=== PATIENT | male | born 2000 ===

== ENCOUNTER 2023-01-07 17:15 | Outpatient (CLI) | payer MEDICAID, SELFPAY | END 2023-01-07 17:16 | disposition home or self-care (01) | PROVIDERS: PCP Emergency Medicine; Visit Provider Emergency Medicine | DX: Z00.00 Encounter for general adult medical examination without abnormal findings (principal); R20.2 Paresthesia of skin; M25.551 Pain in right hip; F32.9 Major depressive disorder, single episode, unspecified; Z11.3 Encounter for screening for infections with a predominantly sexual mode of transmission; Z13.6 Encounter for screening for cardiovascular disorders | CPT/HCPCS: 80053; 80061; 82607; 86140; 86592; 86703; 86706; 86708; 86803; 87491; 87591 ==

== ENCOUNTER 2023-01-21 14:00 | Outpatient (CLI) | payer MEDICAID, SELFPAY | END 2023-01-21 14:01 | disposition home or self-care (01) | PROVIDERS: PCP Emergency Medicine; Visit Provider Emergency Medicine | DX: E53.8 Deficiency of other specified B group vitamins (principal); F32.9 Major depressive disorder, single episode, unspecified; Z13.6 Encounter for screening for cardiovascular disorders | CPT/HCPCS: 82607; 82746; 83090; 84443 ==

== ENCOUNTER 2023-04-22 16:02 | Outpatient (CLI) | payer MEDICAID, SELFPAY | END 2023-04-22 16:03 | disposition home or self-care (01) | LOC: NFLDREF 04-27 04:36 | PROVIDERS: PCP Emergency Medicine; Referring Provider Emergency Medicine; Visit Provider Emergency Medicine | DX: E53.8 Deficiency of other specified B group vitamins (principal); Z13.228 Encounter for screening for other metabolic disorders | CPT/HCPCS: 80048; 80076; 82607; 82746; 83090 ==

== ENCOUNTER 2023-05-15 16:14 | Outpatient (CLI) | payer MEDICAID, SELFPAY | END 2023-05-15 16:15 | disposition home or self-care (01) | PROVIDERS: PCP Emergency Medicine; Visit Provider Emergency Medicine | DX: E53.8 Deficiency of other specified B group vitamins (principal); R62.7 Adult failure to thrive; Z13.21 Encounter for screening for nutritional disorder | CPT/HCPCS: 82306; 86140; 86258; 86364 ==

== ENCOUNTER 2023-06-12 16:15 | Outpatient (RCR) | payer MEDICAID, SELFPAY ==
--- NOTE | 2023-03-18 15:14 | PT.OPE ---
[facility] Start: 03/18/23 11:44 Freq: Status: Active Protocol: Document 03/18/23 15:13 CJT (Rec: 03/18/23 15:14 CJT [id number]) E-signed By Orlando Green PT Physical Therapy Outpatient Evaluation Insurance Information Recert Due Date 06/16/23 Insurance Name [employer] Medical Diagnosis M25.551 - R hip pain M25.552 - L hip pain Treating Diagnosis M25.551 - R hip pain M25.552 - L hip pain Referring Fantasma Zimmerman MD Subjective Subjective Pt presents with complaints of B hip pain ongoing for past 7 years. Pt 's name is Stuart but goes by Rubi or Marcelino. Pain is in the anterior hip. Feels like she cannot stand for more than 2 minutes at a time. Also complains of clicking and popping in the hips and this is accompanied by a sharp pain. Onset of pain occurs with walking as well as standing for extended periods. Sitting is okay. Laying down she also has pain, this is usually immediate. R is worse than L when laying down. Otherwise hip pain is about the same. Pt notes that she tosses and turns throughout the night due to pain. Stand tolerance: 5 minutes Walk tolerance: 10 minutes Laying down: immediate Pain Comments 6-10/10 Pt reports she cannot stand when pain is 10/10. Current Work Status Unemployed Preferred Name Marcelino Venegas Precautions Therapy Limitations/Systems Review Not Limited Objective Other/Pertinent Objective Lumbar ROM Extension - 30 - pain at B iliac crest Flexion - can easily reach toes with knees fully extended R/L Side Bend - 35/35 *pain at R iliac crest with B sidebending R/L Rotation - no limitations, pt complains of diffuse low back pain with B rotation R Hip ROM Flexion - 130 Abduction - 45 IR/ER - 38/38 Extension - 5 L Hip ROM Flexion - 130 Abduction - 45 IR/ER - 45/32 Extension - 5 R knee ROM - 5-0-135 L knee ROM - 5-0-135 R Hip Strength Flexion - 5/5 MMT Abduction - 4/5 MMT Adduction - 5/5 MMT IR - 5/5 MMT ER - 5/5 MMT Extension - 4/5 MMT L Hip Strength Flexion - 5/5 MMT Abduction - 4/5 MMT Adduction - 5/5 MMT IR - 5/5 MMT ER - 5/5 MMT Extension - 4/5 MMT R knee Extension - 5/5 MMT R Knee Flexion - 5/5 MMT L knee Extension - 5/5 MMT L knee Flexion - 5/5 MMT R ankle DF - 5/5 MMT L ankle DF - 5/5 MMT Palpation: pt reports pain/ tenderness with palpation to B hip flexors, glute med, and piriformis Gait: short stride length, low kacy Slump: negative Spurlings: negative SLR: negative FADIR: positive bilaterally RENETTA: negative Sacral compression: negative Sacral distraction: negative LE distraction: negative Bronson test positive bilaterally Pelvis: R anterior LLD: 93.0cm (R)/93.5cm (L) X-Rays of pts lumbar sign show sacralization of L5on S1; otherwise unremarkable Functional Test Performed & Score Lower Extremity Functional Index: 56/80 Assessment Assessment/Impression Rubi is a pleasant 22 year old trans woman who present with complaints of B anterior hip pain. Pt pain seems to be muscular in nature but also seems to be experiencing labral impingement bilaterally with clicking and popping noted deep within pts hip with testing today. B hip abduction and extension weakness was noted with today' s testing as well (see objective). Pt may also be dealing with a leg length discrepancy which we will continue to measure in subsequent sessions to confirm . Treatment will primarily consist of hip strengthening exercises to provide greater support to pts hips/pelvis with activities such as standing, walking, and laying down. The nature of the pts condition was explained and all questions were answered to the pts satisfaction. Skilled PT services are medically necessary to address deficits and return patient to highest level of function. Recommend physical therapy sessions 2/ week for 6 weeks. Pt prefers to schedule 1/week due to transportation concerns. Printout of HEP was given for I completion and pt gives verbal understanding of each exercise. Primary Functional Limitations Walking, standing, laying down Plan of Care Rehabilitation Potential Excellent Physical Therapy Goals STG - To be completed in 2-3 weeks: 1. Pt will report reduction in hip pain by factor of 2 so that they may lay in bed at night and walk dog during the day with manageable level of pain. 2. Pt will report ability to ambulate for at least 20 minutes without onset of hip pain so that they may go for full walks with dog for light exercise. LTG - To be completed in 6 weeks: 1. Pt to be I with HEP so that they may I manage progression of symptoms. 2. Pt will demo 5/5 MMT for all hip motions bilaterally to provide greater support to pelvis and lumbar spine with activities including walking, stairs, etc. 3. Pt will demo ability to perform 10 split squats in either direction without LOB so that they may continue to progress to more advanced hip stabilization exercises and maintain adequate strength and balance. Treatment Plan/Direct Interventions Joint Mobilization, Neuromuscular Re-ed, Therapeutic Exercises Frequency/Duration 1-2/week for 6 weeks Patient Will Be Discharged From Therapy Completion of LTG(s),Skills Plateau,Independent w/HEP, Independently Progressing Evaluation Billing Untimed Code Treatment Minutes 45 PT Eval No Charge No Complexity Low Certification Information Initial Certification Date 03/18/23 Ending Certification Date 06/16/23 Provider Signature Shows Agreement With POC & Medical Necessity Physician Signature & Date Requested Please Sign/Date Here Physician Comment/Change : Physician NPI Number #
== END 2023-07-14 09:35 | disposition home or self-care (01) ==
PROVIDERS: PCP Emergency Medicine; Visit Provider Family Medicine
DX: M25.551 Pain in right hip (principal); M25.552 Pain in left hip; Z51.89 Encounter for other specified aftercare
CPT/HCPCS: 97110; 97161

== ENCOUNTER 2024-04-28 14:16 | Outpatient (CLI) | payer MEDICAID, SELFPAY | END 2024-04-28 14:17 | disposition home or self-care (01) | PROVIDERS: PCP Emergency Medicine; Visit Provider Emergency Medicine | DX: R10.33 Periumbilical pain (principal); Z11.59 Encounter for screening for other viral diseases; Z11.4 Encounter for screening for human immunodeficiency virus [HIV]; Z11.3 Encounter for screening for infections with a predominantly sexual mode of transmission | CPT/HCPCS: 80076; 83690; 86140; 86592; 86703; 86706; 86708; 86803; 87340 ==

== ENCOUNTER 2024-04-29 16:13 | Outpatient (CLI) | payer MEDICAID, SELFPAY ==
--- NOTE | 2024-04-29 16:00 | CRLHL7_ITS ---
For Patients: As a result of the Century Cures Act, medical imaging exams and procedure reports are released immediately into your electronic medical record. You may view this report before your referring provider. If you have questions, please contact your health care provider. INDICATION: Elevated lipase. Abdominal pain. TECHNIQUE: Multiplanar CT examination of the abdomen and pelvis was performed after the administration of 70 mL Isovue 370 intravenous contrast. COMPARISON: None. FINDINGS: Lower chest: No focal consolidation. Normal heart size. No pleural effusions or pneumothorax. Liver: Tiny subcentimeter hepatic hypodensity within the inferior right hepatic lobe, too small to characterize. Otherwise, unremarkable. Gallbladder: Unremarkable. Biliary: Unremarkable. Pancreas: The pancreas is homogeneously enhancing. No pancreatic ductal dilatation. No peripancreatic fat stranding or loculated fluid collections. Spleen: Unremarkable. Adrenal glands: Unremarkable. Renal/ureters/bladder: Normal in size and symmetrically enhancing. No obstructive uropathy. No hydronephrosis or obstructive urinary calculi. No suspicious renal masses. The ureters appear unremarkable. The bladder is within normal limits. Pelvis: Unremarkable prostate. Gastrointestinal: Mild wall thickening and hyperenhancement involving loops of nondistended, fluid-filled small bowel diffusely in the lower pelvis. No bowel obstruction. Normal appendix. No significant colonic diverticulosis. Moderate colonic stool burden. Vasculature: No aortic aneurysm. The portal vein remains patent. No significant atherosclerotic calcifications. Lymph nodes: No pathologic lymphadenopathy by size criteria. Peritoneum: No free fluid or pneumoperitoneum. No drainable fluid collections. Abdominal wall/soft tissues: Unremarkable. Bones: No acute osseous abnormalities. IMPRESSION: 1. No CT evidence of acute pancreatitis. 2. Mild wall thickening and hyperenhancement involving loops of nondistended, fluid-filled small bowel in the lower pelvis, raising the possibility of a nonspecific infectious versus inflammatory enteritis. No bowel obstruction. 3. No other acute abdominopelvic findings. Please note that all CT scans at this facility use dose modulation, iterative reconstruction, and/or weight-based dosing when appropriate to reduce radiation dose to as low as reasonably achievable. Dictated by Alli Maldonado MD @ 04/29/2024 4:52:20 PM (Electronically Signed)
== END 2024-04-29 16:14 | disposition home or self-care (01) ==
LOC: CT 16:14
PROVIDERS: PCP Emergency Medicine; Visit Provider Emergency Medicine
DX: R10.33 Periumbilical pain (principal); R74.8 Abnormal levels of other serum enzymes
CPT/HCPCS: 74177; Q9967